=== PATIENT | female | born 1985 | race American Indian/Alaskan Native ===

== ENCOUNTER 2017-06-28 10:56 | Outpatient (CLI) | payer MEDICAID ==
[2017-06-28] MEDS ORDERED: LACTATED RINGERS 500 ML IV ONE (11:22)
[2017-06-28 11:33] VITALS: BP 108/68
[2017-06-28] MEDS ORDERED: TYLENOL PO ONE (11:36)
== END 2017-06-28 12:30 | disposition home or self-care (01) ==
LOC: TRG 10:56
PROVIDERS: ATTEND Obstetrics & Gynecology
DX: O47.03 False labor before 37 completed weeks of gestation, third trimester (principal); Z3A.31 31 weeks gestation of pregnancy
CPT/HCPCS: 59025

== ENCOUNTER 2017-08-10 07:41 | Outpatient (CLI) | payer MEDICAID ==
[2017-08-10 08:08] VITALS: BP 111/79
[2017-08-10 09:28] LABS: Bilirubin,Urine NEG (Negative); Blood,Urine NEG (Negative); Color,Urine Yellow (Yellow); Mucus,Urine FEW /HPF; Protein,Urine <15 mg/dL mg/dL (Negative)
[2017-08-10] MEDS ORDERED: VISTARIL PO ONE (09:50)
== END 2017-08-10 10:07 | disposition home or self-care (01) ==
LOC: TRG 07:41
PROVIDERS: ATTEND Obstetrics & Gynecology
DX: O47.1 False labor at or after 37 completed weeks of gestation (principal); Z3A.37 37 weeks gestation of pregnancy
CPT/HCPCS: 59025; 81001; Q0177

== ENCOUNTER 2017-08-12 14:43 | Inpatient (IN) | payer MEDICAID ==
[2017-08-12] MEDS ORDERED: BRETHINE SUB-Q PRN (15:35)
[2017-08-12] MEDS ORDERED: BRETHINE IVP PRN (15:35)
[2017-08-12] MEDS ORDERED: MINERAL OIL PO PRN (15:35)
[2017-08-12] MEDS ORDERED: NARCAN 0.4 MG/1 ML IV PRN (15:35)
[2017-08-12] MEDS ORDERED: STADOL IV PRN (15:35)
[2017-08-12] MEDS ORDERED: SUBLIMAZE IV PRN (15:35)
[2017-08-12] MEDS ORDERED: ePHEDrine SULFATE IV PRN (15:35)
[2017-08-12] MEDS ORDERED: PHENERGAN PR PRN (15:35)
[2017-08-12] MEDS ORDERED: XYLOCAINE 2% INFILTRATI ONE (15:35)
[2017-08-12] MEDS ORDERED: PITOCin/NS 30 UNIT/500ML 30 UNITS/500 ML BAG IV SCH (16:00)
[2017-08-12] MEDS ORDERED: PITOCin/NS 20 UNIT/1000ML DRIP 20 UNITS/1,000 ML BAG IV SCH (16:00)
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
[2017-08-12] MEDS ORDERED: POLYCILLIN/NS 2 GM/100 ML 2 GM/100 ML BAG IV SCH (16:45)
[2017-08-12] MEDS: NORMOSOL-R PH 7.4 1,000 ML IV SCH (17:05)
[2017-08-12 17:09] LABS: Hematocrit 30.6 % (30.3-42.9); Hemoglobin 10.2 gm/dl (10.1-14.3); Mean Corpuscular HGB Conc 34 % (30-34); Mean Corpuscular Hemoglobin 29 pg (28-32); Mean Corpuscular Volume 87 fl (79-97); Platelet Count 177 K/mm3 (140-440); Red Blood Count 3.53 M/mm3 (3.65-5.03); Red Cell Distribution Width 14.2 % (13.2-15.2)
[2017-08-12] MEDS: PITOCin/NS 30 UNIT/500ML 30 UNITS/500 ML BAG IV SCH ×7 (17:11→22:11)
[2017-08-12] MEDS: AMPICILLIN/NS 1 GM/50 ML 1 GM/50 ML BAG IV SCH (19:40)
[2017-08-13] MEDS: AMPICILLIN/NS 1 GM/50 ML 1 GM/50 ML BAG IV SCH (00:07)
[2017-08-13] MEDS: NORMOSOL-R PH 7.4 1,000 ML IV SCH (00:10)
--- NOTE | 2017-08-13 01:26 | Procedure Note ---
OB Delivery Note - Delivery Date of Delivery: 08/13/17 Surgeon: BETINA SINGH Estimated blood loss: 300cc - Vaginal Delivery presentation: vertex Delivery position: OA Intrapartum events: none Delivery induction: oxytocin Delivery augmentation: pitocin Delivery monitor: external FHT, external uterine Route of delivery: Delivery placenta: spontaneous Delivery cord: 3 umbilical vessels Episiotomy: none Delivery laceration: none Anesthesia: none - Infant A at 1 minute: 8 at 5 minutes: 9 Gender: Female (6#1oz)
[2017-08-13] MEDS ORDERED: TYLENOL PO PRN (01:46)
[2017-08-13] MEDS ORDERED: DULCOLAX PR PRN (01:46)
[2017-08-13] MEDS ORDERED: LANSINOH TP PRN (01:46)
[2017-08-13] MEDS ORDERED: NORCO 5/325 PO PRN (01:46)
[2017-08-13] MEDS ORDERED: ZOFRAN IV PRN (01:46)
[2017-08-13] MEDS ORDERED: MILK OF MAGNESIA PO PRN (01:46)
[2017-08-13] MEDS ORDERED: BENADRYL PO PRN (01:46)
[2017-08-13] MEDS ORDERED: PHENERGAN PR PRN (01:46)
[2017-08-13] MEDS ORDERED: PHENERGAN PO PRN (01:46)
[2017-08-13] MEDS ORDERED: TUCKS PAD TP PRN (01:46)
[2017-08-13] MEDS ORDERED: SODIUM CHLORIDE FLUSH SYRINGE 10 ML IV NR (02:00)
[2017-08-13] MEDS ORDERED: PITOCin/NS 20 UNIT/1000ML DRIP 20 UNITS/1,000 ML BAG IV SCH (02:00)
[2017-08-13] MEDS ORDERED: POLYCILLIN/NS 2 GM/100 ML 2 GM/100 ML BAG IV ONE (05:41)
[2017-08-13] MEDS: MOTRIN PO SCH ×3 (05:44→23:28)
--- NOTE | 2017-08-13 08:26 | Progress Note ---
Assessment and Plan patient doing well <12hrs post delivery, no complaints. VSSAF, lochia scant, no s/s anemia, H&H ordered @ 1346 today. Continue pathway and anticipate d/c home tomorrow. - Patient Problems (1) No care in current Current Visit: Yes Status: Acute (2) Vaginal delivery Current Visit: Yes Status: Acute Subjective - Subjective Date of service: 08/13/17 Principal diagnosis: day #1 s/p , no care Patient reports: appetite normal, voiding normally, pain well controlled, ambulating normally, no dizzy ambulation, no nauseated [place]: doing well Objective - Vital Signs Latest vital signs: Vital Signs Temp Pulse Resp BP BP Pulse Ox 08/13/17 08:22 98.4 F 75 18 104/82 08/13/17 03:35 98.9 F 64 18 95/50 100 08/13/17 02:39 74 110/60 08/13/17 02:24 70 18 112/60 112/60 08/13/17 02:10 76 128/72 08/13/17 02:09 98 F 76 18 128/72 08/13/17 01:43 73 104/61 08/13/17 01:40 73 18 104/61 08/13/17 01:24 74 18 103/66 103/33 08/13/17 00:15 97.7 F 08/13/17 00:01 9 L 08/12/17 23:07 69 112/80 08/12/17 23:00 69 18 112/80 08/12/17 22:39 67 115/69 08/12/17 22:07 68 126/70 08/12/17 21:38 69 95/63 08/12/17 21:18 70 112/72 08/12/17 21:07 74 110/73 08/12/17 20:37 69 111/73 08/12/17 20:27 80 106/66 08/12/17 19:15 65 108/66 08/12/17 19:12 98.6 F 65 18 105/66 08/12/17 18:42 68 98 08/12/17 18:37 67 97 08/12/17 18:32 78 97 08/12/17 18:27 77 97 08/12/17 18:22 67 97 08/12/17 18:17 97.6 F 65 16 101/66 97 08/12/17 18:12 75 98 08/12/17 18:07 71 98 08/12/17 18:02 70 97 08/12/17 17:57 69 97 08/12/17 17:47 75 97 08/12/17 17:42 75 98 08/12/17 17:37 81 96 08/12/17 17:32 77 95 08/12/17 17:27 73 96 08/12/17 17:22 85 97 08/12/17 17:17 92 H 95 08/12/17 17:13 82 94 08/12/17 17:12 88 95 08/12/17 17:07 77 96 08/12/17 17:02 83 96 08/12/17 16:57 79 94 08/12/17 16:52 85 97 08/12/17 16:47 88 94 08/12/17 16:46 87 94 08/12/17 16:42 82 96 08/12/17 16:37 81 98 08/12/17 16:32 94 H 98 08/12/17 16:27 83 96 08/12/17 16:22 88 96 08/12/17 16:17 79 97 08/12/17 16:12 82 97 08/12/17 16:07 89 97 08/12/17 16:02 83 97 08/12/17 15:57 85 97 08/12/17 15:52 88 97 08/12/17 15:47 87 98 08/12/17 15:42 87 97 08/12/17 15:37 95 H 98 08/12/17 15:32 93 H 97 08/12/17 15:27 95 H 95 08/12/17 15:22 100 H 95 08/12/17 15:17 102 H 96 08/12/17 15:16 95 H 101/66 Intake and Output 08/12/17 08/13/17 08/13/17 23:59 07:59 15:59 Intake Total 120.868 885.417 240 Balance 120.868 885.417 240 Intake: IV 120.868 885.417 AMPICILLIN/NS 1 GM/50 ML 50 1 gm In 50 ml @ 100 mls/ hr IV Q4H [facility] Rx#: [id number] Normosol-R pH 7.4 1,000 885.417 ml @ 125 mls/hr IV DIRECT ROBBIN Rx#:[id number] PITOCin/NS 30 UNIT/500ML 70.868 30 units In 500 ml @ 1 MILLIUNITS/MIN 1 mls/hr IV TITR ROBBIN Rx#:[id number] Oral 240 Other: Total, Intake Amount 240 # Voids Void 1 1 Weight 85.729 kg Estimated Blood Loss 300 - Exam Breasts: Present: normal Cardiovascular: Present: Regular rate Lungs: Present: Clear to auscultation, Normal air movement Abdomen: Present: normal appearance, soft Vulva: both: normal Uterus: Present: normal, firm Extremities: Present: normal Deep Tendon Reflex Grade: Normal +2 - Labs Labs: Abnormal lab results 08/12/17 Range/Units 16:45 RBC 3.53 L (3.65-5.03) M/mm3
[2017-08-13] MEDS ORDERED: AMPICILLIN/NS 1 GM/50 ML 1 GM/50 ML BAG IV SCH (09:45)
[2017-08-13 13:33] LABS: Hematocrit 27.1 % (30.3-42.9); Hemoglobin 8.8 gm/dl (10.1-14.3)
[2017-08-13] MEDS: COLACE PO SCH ×2 (16:14→22:00)
[2017-08-13] MEDS: FEOSOL PO SCH (23:28)
[2017-08-14] MEDS ORDERED: BOOSTRIX IM ONE (06:00)
[2017-08-14] MEDS: MOTRIN PO SCH ×2 (06:06→13:00)
--- NOTE | 2017-08-14 06:21 | Discharge Summary ---
Providers - Providers Date of Admission: 08/12/17 14:44 Date of discharge: 08/14/17 (pt agrees with d/c ) Attending physician: BETINA SINGH 08/14/17 05:09 Consult to Case Management [CONS] Routine Services Needed at Discharge: Furniture Upholsterer Notified:: no Additional Physician Instructions: No care Primary care physician: MARIBELL HOLT Hospitalization Reason for admission: active labor (no care) Delivery: Episiotomy: none Laceration: none Incision: normal Other procedures: none complications: none Discharge diagnosis: IUP at term delivered baby: female Hospital course: uncomplicated vaginal delivery Pt A&O No c/o voiced VSS FF below umb Lochia small Perineum intact Anemia pt is asymptomatic Doing well s/p vag delivery P: d/c instructions given DEPO for BC requested. RX iron and motrin provided. Condition at discharge: Good Disposition: DC-01 TO HOME OR SELFCARE - Discharge Diagnoses (1) Vaginal delivery Status: Acute Comment: RTO 4 weeks PP care Plan - Discharge Medications Prescriptions: Ibuprofen [Motrin 600 MG tab] 600 mg PO Q8H PRN #30 tablet PRN Reason: Pain - Provider Discharge Summary Activity: routine, no sex for 6 weeks, no heavy lifting 4 weeks, no strenuous exercise Diet: routine Instructions: routine Additional instructions: [] Smoking cessation referral if applicable(refer to patient education folder for contact #) [] Refer to [facility] Booklet Call your doctor immediately for: * Fever > 100.5 * Heavy vaginal bleeding ( >1 pad per hour) * Severe persistent headache * Shortness of breath * Reddened, hot, painful area to leg or breast * Drainage or odor from incision. * Keep incision clean and dry at all times and follow doctor's instructions regarding bathing/showering - Follow up plan Follow up: MARIBELL HOLT MD [Primary Care Provider] - 7 Days KERRI CHU CNM [Advanced Practice Nurse] - 7 Days (Congratulations! Please call [phone] to schedule your appointment in 4 weeks. Take medications as prescribed. Call with any concerns. [facility]; [address] [facility] [address] [place], [place] [id number]) Forms: [facility] Discharge Summary, Discharge Signature Page
[2017-08-14] MEDS ORDERED: DEPO-PROVERA (CONTRACEPTION) IM ONE ×2 (06:24→13:00)
[2017-08-14 09:11] VITALS: BP 116/79
[2017-08-14] MEDS: FEOSOL PO SCH (13:00)
[2017-08-14] MEDS: COLACE PO SCH (13:00)
== END 2017-08-14 13:30 | disposition home or self-care (01) | DRG 775 ==
LOC: TRG 14:43 → LD 14:44 → OB 08-13 03:31
PROVIDERS: ADMIT Obstetrics & Gynecology; ATTEND Obstetrics & Gynecology
PROC: 10E0XZZ Delivery of Products of Conception, External Approach (ICD-10-PCS; principal; 2017-08-13)
PROC: 3E033VJ Introduction of Other Hormone into Peripheral Vein, Percutaneous Approach (ICD-10-PCS; 2017-08-13)
DX: O99.02 Anemia complicating childbirth (principal); D64.9 Anemia, unspecified; Z3A.37 37 weeks gestation of pregnancy; Z37.0 Single live birth; Z87.891 Personal history of nicotine dependence; O07.4 Failed attempted termination of pregnancy without complication
CPT/HCPCS: 36415; 85014; 85018; 85027; 86592; 86706; 86762; 86850; 86900; 86901; 87806; 99211; G0463; J0290; J1050; J2590; J3010